=== PATIENT | male | born 1995 | race African-American/Black ===

== ENCOUNTER 2018-03-01 03:38 | Emergency (ER) | payer OTHER ==
[~2018-03-01] VITALS: Ht 170.2 cm; Wt 81.6 kg
[2018-03-01] MEDS ORDERED: AMOXICILLIN500 M1 PO (04:18)
== END 2018-03-01 17:14 | disposition home or self-care (01) ==
LOC: EMR PED 03:38 → ER 03:38
DX: H10.89 Other conjunctivitis (principal)

== ENCOUNTER 2020-06-25 10:00 | Emergency (ER) | payer OTHER ==
[~2020-06-25] VITALS: Ht 175.3 cm; Wt 81.6 kg
[~2020-06-25 10:00] MED LIST: AMOXICILLIN500 M1 PO
== END 2020-06-25 12:55 | disposition home or self-care (01) ==
LOC: ER 10:00
DX: B34.9 Viral infection, unspecified (principal); Z20.828 Contact with and (suspected) exposure to other viral communicable diseases

== ENCOUNTER 2020-09-18 15:05 | Outpatient (CLI) | payer OTHER | END 2020-09-18 18:00 | disposition home or self-care (01) | LOC: PPH VACUNA 15:05 | DX: Z23 Encounter for immunization (principal) ==

== ENCOUNTER 2021-07-11 11:00 | Outpatient (CLI) | payer OTHER | END 2021-07-11 15:02 | disposition home or self-care (01) | LOC: PPH VACUNA 11:00 | PROVIDERS: ATTEND Emergency Medicine Pediatric Emergency Medicine | DX: Z23 Encounter for immunization (principal) ==

== ENCOUNTER 2021-08-08 13:35 | Outpatient (CLI) | payer OTHER | END 2021-08-08 13:45 | disposition home or self-care (01) | LOC: PPH VACUNA 13:35 | PROVIDERS: ATTEND Emergency Medicine Pediatric Emergency Medicine | DX: Z23 Encounter for immunization (principal) ==

== ENCOUNTER 2022-06-25 12:13 | Outpatient (CLI) | payer OTHER | END 2022-06-25 12:18 | disposition home or self-care (01) | LOC: PPH VACUNA 12:13 | PROVIDERS: ATTEND Emergency Medicine Pediatric Emergency Medicine | DX: Z23 Encounter for immunization (principal) ==